=== PATIENT | female | born 1970 | race African-American/Black ===

== ENCOUNTER → 2016-11-25 | Outpatient (CLI) | payer OTHER ==
[~2016-11-25] MED LIST: FLEXERIL10 MG PO; LORTAB 5/500 TA1 TA1 PO; LYRICA75 MG PO; PHENERGAN25 MG PO
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
== END | disposition home or self-care (01) ==
LOC: CRAD 13:11
DX: S93.401A Sprain of unspecified ligament of right ankle, initial encounter (principal); M79.89 Other specified soft tissue disorders
CPT/HCPCS: 73610